=== PATIENT | male | born 1995 | race Caucasian/White ===

== ENCOUNTER 2020-09-18 15:22 | Day surgery (SDC) | payer MEDICAID ==
[~2020-09-18] VITALS: Ht 170.2 cm; Wt 50.0 kg
[~2020-09-18 15:22] MED LIST: AMOX1TAB64 PO; BUSP5TAB2 PO; DIAZ5TAB4 PO; LEVE500T53 PO; MULT-484 PO; QUET25TA7 PO; SERT50TA28 PO
[2020-09-18] MEDS ORDERED: ONDANSETRON 2MG/ML, 2ML ONE ×2 (15:50→19:10)
[2020-09-18] MEDS ORDERED: FAMOTIDINE 20 MG/2 ML IVPush ONE (16:00)
[2020-09-18] MEDS ORDERED: SODIUM CHLORIDE FLUSH 10ML SYR IVF ONE (16:00)
[2020-09-18] MEDS ORDERED: ONDANSETRON 2MG/ML, 2ML IVPush ONE (16:00)
[2020-09-18] MEDS ORDERED: SODIUM CHLORIDE 0.9% 1,000ML IVBOLUS ONE (16:00)
[2020-09-18 16:03] LABS: BASOPHILS % (AUTO) 0 % (0-1); EOSINOPHILS % (AUTO) 0 % (1-7); LYMPHOCYTES % (AUTO) 8 % (22-44); MEAN CORPUSCULAR HEMOGLOBIN 31.7 pg (27.5-34.5); MEAN CORPUSCULAR HGB CONC 34.5 g/dL (33.2-36.2); MEAN PLATELET VOLUME 7.6 fL (7.4-10.4); MONOCYTES % (AUTO) 4 % (2-9); NEUTROPHILS % (AUTO) 88 % (42-75); PLATELET COUNT 258 x10^3/uL (130-400); RED BLOOD COUNT 5.04 x10^6/uL (4.38-5.82)
[2020-09-18 16:05] LABS: ALANINE AMINOTRANSFERASE 25 U/L (12-78); ALBUMIN 4.3 g/dL (3.4-5.0); ANION GAP 6 mmol/L (5-15); CALCIUM 9.6 mg/dL (8.5-10.1); CHLORIDE 106 mmol/L (98-107); CREATININE 0.95 mg/dL (0.7-1.3)
[2020-09-18 16:08] LABS: ALKALINE PHOSPHATASE 118 U/L (45-117); BILIRUBIN,TOTAL 0.8 mg/dL (0.2-1.0)
--- NOTE | 2020-09-18 16:13 | NUR ---
US WITH PATIENT, UNABLE TO DO CT
--- NOTE | 2020-09-18 16:17 | NUR ---
PT RESTING IN BED, HOOKED TO MONITORS, BOLUS RUNNING. DR. SALAZAR EVALUATED.RIGHT LOWER ABD PAIN, N/V . COVID-19 VACINATION MAY 2020.
--- NOTE | 2020-09-18 16:42 | NUR ---
PT TO CT. VSS. NADN.
--- NOTE | 2020-09-18 16:55 | NUR ---
PT BACK FROM CT
[2020-09-18 16:58] LABS: MICROSCOPIC INDICATED
[2020-09-18] MEDS ORDERED: OMNIPAQUE 350 MG/ML, 100ML BOTTLE ONE (17:00)
[2020-09-18 17:18] VITALS: BP 123/71
[2020-09-18] MEDS ORDERED: MORPHINE SULFATE 4 MG/ML, 1ML ONE (17:20)
[2020-09-18] MEDS ORDERED: CEFAZOLIN PMX 1GM/50ML 0 ML ONE (17:20)
--- NOTE | 2020-09-18 17:29 | NUR ---
YELLOW MED REQUEST SENT FOR ANTIBIOTIC TO PHARMACY. PHARMACY ALSO CALLED.
[2020-09-18] MEDS ORDERED: CEFOTETAN PMX 1GM/50ML 50 ML IVPB ONE (17:30)
[2020-09-18] MEDS ORDERED: MORPHINE SULFATE 4 MG/ML, 1ML IVPush ONE (17:30)
[2020-09-18] MEDS ORDERED: BUPIVACAINE/PF 0.5% ONE (17:57)
[2020-09-18] MEDS ORDERED: EPINEPHRINE 1 MG/ML, 1ML ONE (17:57)
[2020-09-18] MEDS ORDERED: SODIUM CHLORIDE FLUSH 10ML SYR IVF PRN (18:00)
[2020-09-18] MEDS ORDERED: SODIUM CHLORIDE 0.9% 1,000 ML IV ONE (18:00)
[2020-09-18] MEDS ORDERED: MIDAZOLAM 1 MG/ML, 2ML ONE (18:17)
[2020-09-18] MEDS ORDERED: FENTANYL PF 100 MCG/2ML ONE (18:17)
--- NOTE | 2020-09-18 18:22 | NUR ---
PT TO OR
[2020-09-18] MEDS ORDERED: PROMETHAZINE 25 MG/ML, 1ML IVPush PRN (18:30)
[2020-09-18] MEDS ORDERED: METHOCARBAMOL 1,000 MG in DEXTROSE 5% 100 ML IV PRN (18:30)
[2020-09-18] MEDS ORDERED: OXYcodone 5 MG/5 ML ORAL.SOL UDC PO PRN ×2 (18:30→21:30)
[2020-09-18] MEDS ORDERED: MEPERIDINE/PF 25MG/0.5ML IVPush PRN (18:30)
[2020-09-18] MEDS ORDERED: ONDANSETRON 2MG/ML, 2ML IVPush PRN ×2 (18:30→21:30)
[2020-09-18] MEDS ORDERED: LORazepam 2 MG/ML, 1ML IVPush PRN (18:30)
[2020-09-18] MEDS ORDERED: LABETALOL 5MG/ML, 20ML IV PRN (18:30)
[2020-09-18] MEDS ORDERED: ALBUTEROL SULFATE 2.5 MG/3 ML NPPB PRN (18:30)
[2020-09-18] MEDS ORDERED: ACETAMINOPHEN 325 MG TABLET PO PRN (18:30)
[2020-09-18] MEDS ORDERED: hydrALAzine 20 MG/ML, 1ML IV PRN (18:30)
[2020-09-18] MEDS ORDERED: FENTANYL PF 100 MCG/2ML IV PRN (18:30)
[2020-09-18] MEDS ORDERED: METOPROLOL 1 MG/ML, 5ML IV PRN (18:30)
[2020-09-18] MEDS ORDERED: HYDROmorphone 1 MG/ML, 1ML INJ IVPush PRN (18:30)
[2020-09-18] MEDS ORDERED: PROMETHAZINE 25 MG SUPP PR PRN (18:30)
[2020-09-18] MEDS ORDERED: DEXAMETHASONE 4 MG/ML, 1ML ONE (18:32)
[2020-09-18] MEDS ORDERED: LIDOCAINE 1%, 20ML ONE (18:32)
--- NOTE | 2020-09-18 18:45 | NUR ---
REPORT TO SUKUMAR
[2020-09-18] MEDS ORDERED: BUPIVACAINE/PF-EPI 0.5% 1:200K INFIL ONE (18:54)
[2020-09-18] MEDS ORDERED: SUCCINYLCHOLINE 20 MG/ML, 10ML ONE (19:10)
[2020-09-18] MEDS ORDERED: NEOSTIGMINE 1 MG/ML, 10ML ONE (19:10)
[2020-09-18] MEDS ORDERED: GLYCOPYRROLATE 0.2MG/1ML, 5ML ONE (19:10)
[2020-09-18] MEDS ORDERED: ROCURONIUM 10MG/ML,5ML ONE (19:10)
[2020-09-18] MEDS ORDERED: PROPOFOL 10 MG/ML, 20ML ONE (19:10)
[2020-09-18] MEDS ORDERED: CEFAZOLIN 1,000 MG ONE (19:10)
[2020-09-18] MEDS ORDERED: IBUP-1223 PO (19:29)
[2020-09-18] MEDS ORDERED: ACET-1600 PO (19:29)
[2020-09-18] MEDS ORDERED: OXYC5TAB2 PO (19:29)
[2020-09-18] MEDS ORDERED: OXYcodone 5 MG/5 ML ORAL.SOL UDC ONE (19:34)
[2020-09-18] MEDS ORDERED: MEPERIDINE/PF 25MG/ML,1ML ONE (19:34)
[2020-09-18] MEDS ORDERED: MORPHINE SULFATE 4 MG/ML, 1ML IVPush PRN (21:30)
[2020-09-18] MEDS ORDERED: KETOROLAC 30 MG/1 ML IV PRN (21:30)
[2020-09-19] MEDS ORDERED: IBUPROFEN 600 MG TABLET PO SCH (06:00)
[2020-09-19] MEDS ORDERED: ENOXAPARIN 40 MG/0.4 ML SQ SCH (08:00)
== END 2020-09-18 22:27 | disposition home or self-care (01) ==
LOC: ED 16:20 → EDIP 17:49 → OR 17:49 → UNDOADMIN 17:49 → 4NE 20:01 → EDIP 20:01 → UNDODISIN 22:27 → OR 22:27
PROVIDERS: ATTEND Emergency Medicine
DX: K35.80 Unspecified acute appendicitis (principal); F41.9 Anxiety disorder, unspecified; F12.90 Cannabis use, unspecified, uncomplicated; Z20.822 Contact with and (suspected) exposure to COVID-19; Z79.899 Other long term (current) drug therapy; Z88.8 Allergy status to other drugs, medicaments and biological substances
CPT/HCPCS: 36415; 44970; 74177; 76700; 80053; 81001; 83690; 85025; 87635; 88304; 93005; 96374; 99285; J0171; J0330; J0690; J1100; J2175; J2250; J2270; J2405; J2704; J2710; J3010; J7030; Q9967; G0378